=== PATIENT | female | born 1955 | race Two or more races ===

== ENCOUNTER 2022-09-30 12:48 | Outpatient (CLI) | payer MEDICARE, OTHER ==
[2022-09-30] MEDS ORDERED: Z GUARD REMEDY 4 OZ OINT TP ONE (13:01)
== END 2022-09-30 23:59 ==
LOC: WOU 12:48
PROVIDERS: ATTEND Surgery
DX: L89.153 Pressure ulcer of sacral region, stage 3 (principal); L89.321 Pressure ulcer of left buttock, stage 1; L89.311 Pressure ulcer of right buttock, stage 1; M62.50 Muscle wasting and atrophy, not elsewhere classified, unspecified site; E78.5 Hyperlipidemia, unspecified; Z93.1 Gastrostomy status; P37.1 Congenital toxoplasmosis
CPT/HCPCS: 11042; A6209

== ENCOUNTER 2022-10-14 12:48 | Outpatient (CLI) | payer MEDICARE, OTHER ==
[2022-10-14] MEDS ORDERED: Z GUARD REMEDY 4 OZ OINT TP ONE (13:09)
== END 2022-10-14 23:59 | disposition home or self-care (01) ==
LOC: WOU 12:48
PROVIDERS: ATTEND Surgery
DX: M62.50 Muscle wasting and atrophy, not elsewhere classified, unspecified site (principal); R53.2 Functional quadriplegia; G91.9 Hydrocephalus, unspecified; Z93.1 Gastrostomy status; E78.5 Hyperlipidemia, unspecified
CPT/HCPCS: A6209; G0463